=== PATIENT | female | born 2000 | race African-American/Black ===

== ENCOUNTER 2022-10-04 13:32 | Emergency (ER) | payer SELFPAY | END 2022-10-04 15:13 | disposition home or self-care (01) | LOC: ERS 13:32 | DX: J01.90 Acute sinusitis, unspecified (principal); F17.290 Nicotine dependence, other tobacco product, uncomplicated | CPT/HCPCS: 99283 ==

== ENCOUNTER 2022-12-28 23:41 | Emergency (ER) | payer OTHER ==
[2022-12-29 13:02] LABS: GC by PCR, EndoCx Swab Not Detected (NotDetected)
== END 2022-12-29 00:54 | disposition home or self-care (01) ==
LOC: ERS 23:41
DX: A60.04 Herpesviral vulvovaginitis (principal)
CPT/HCPCS: 87480; 87510; 87591; 87660; 99283

== ENCOUNTER 2023-07-28 10:56 | Emergency (ER) | payer OTHER ==
[2023-07-28] MEDS ORDERED: Acetaminophen 500 MG TAB ONE (12:32)
[2023-07-28 13:15] LABS: Bacteria/HPF None Seen HPF (None Seen); Bilirubin Negative (Negative); Blood, Urine Negative (Negative); CAUTI Indications for Culture Pelvic or flank pain; Clarity Clear (Clear); Glucose, Urine (Dipstick) Normal (Negative); Ketone, Urine Negative (Negative); Leukocyte 75 Leu/uL (Negative); Nitrite Negative (Negative); Protein, Urine (Dipstick) 30 mg/dL (Neg-Trace); RBC/HPF 0-3 HPF (0-3); Specific Gravity, Urine 1.027 (1.002-1.036); Urobilinogen Normal mg/dL (Less than 2)
[2023-07-28 13:22] LABS: Pregnancy Test - Urine (BHCG) Negative (Negative)
[2023-07-28 13:24] LABS: Pregu Control Background? CLEAR/WHITE (CLR/WHITE); Pregu Control Bar Appear? YES (CONTROL BAR); Specific Gravity 1.027 (1.002-1.036)
[2023-07-28 13:45] LABS: Urine Culture Reflex Yes Yes
== END 2023-07-28 13:40 | disposition home or self-care (01) ==
LOC: ERS 10:56
DX: R51.9 Headache, unspecified (principal); M54.2 Cervicalgia; F17.210 Nicotine dependence, cigarettes, uncomplicated; V43.52XA Car driver injured in collision with other type car in traffic accident, initial encounter
CPT/HCPCS: 70450; 71045; 72125; 81001; 81025; 87086; 93005